=== PATIENT | male | born 1995 ===

== ENCOUNTER → 2017-04-07 | Outpatient (REF) | payer OTHER ==
[2017-04-07 13:56] LABS: SPERM ABNORMAL FORMS WBC'S NOTED
[2017-04-07 13:57] LABS: % NORMAL FORMS 12 % (>=4); IMMOTILITY 31 %; NON PROGRESSIVE MOTILITY (c) 18 %; PROGRESSIVE MOTILITY (a) 51 % (>=32); SPERM# 63.5 M/Ejac (>=39); TOTAL FUNCTIONAL 8.5 M/Ejac.; TOTAL MOTILITY 69 % (>=40); TOTAL PROGRESSIVE SPERM 32.1 M/Ejac.
== END ==
LOC: M LAB REF 10:25
PROVIDERS: ATTEND Obstetrics & Gynecology
DX: N46.8 Other male infertility (principal)